=== PATIENT | female | born 1970 | race African-American/Black ===

== ENCOUNTER 2021-05-07 08:36 | Outpatient (CLI) | payer OTHER | END 2021-05-07 08:37 | disposition home or self-care (01) | LOC: SCSMRI 08:36 | PROVIDERS: ATTEND Specialist | DX: M54.2 Cervicalgia (principal); M47.816 Spondylosis without myelopathy or radiculopathy, lumbar region; M50.31 Other cervical disc degeneration, high cervical region; M48.02 Spinal stenosis, cervical region | CPT/HCPCS: 72141 ==